=== PATIENT | female | born 1985 | race Caucasian/White ===

== ENCOUNTER 2021-06-22 18:29 | Emergency (ER) | payer OTHER ==
[2021-06-22] MEDS ORDERED: NAPROXEN500 MG PO (19:12)
== END 2021-06-22 19:15 | disposition home or self-care (01) ==
LOC: ER1 18:29
DX: G56.01 Carpal tunnel syndrome, right upper limb (principal); G56.02 Carpal tunnel syndrome, left upper limb; E10.9 Type 1 diabetes mellitus without complications; F17.210 Nicotine dependence, cigarettes, uncomplicated; Z88.0 Allergy status to penicillin; Z88.1 Allergy status to other antibiotic agents; Z88.6 Allergy status to analgesic agent
CPT/HCPCS: 29125; 99283